=== PATIENT | female | born 1990 | race Caucasian/White ===

== ENCOUNTER 2017-05-05 18:35 | Outpatient (CLI) | END 2017-05-05 21:15 | disposition home or self-care (01) ==

== ENCOUNTER 2017-05-09 18:57 | Outpatient (CLI) | END 2017-05-09 21:33 | disposition home or self-care (01) ==

== ENCOUNTER 2017-05-12 19:45 | Outpatient (CLI) | END 2017-05-12 22:20 | disposition home or self-care (01) ==

== ENCOUNTER 2017-05-16 10:34 | Outpatient (CLI) | END 2017-05-16 12:00 | disposition home or self-care (01) ==